=== PATIENT | male | born 1985 | race Caucasian/White ===

== ENCOUNTER 2017-08-06 17:17 | Emergency (ER) | payer MEDICAID ==
[2017-08-06] MEDS ORDERED: Lidocaine 1% 20 ML MDV INJECT ONE (17:18)
[2017-08-06 17:51] VITALS: BP 115/73
--- NOTE | 2017-08-06 18:05 | EDM.PDOC ---
ED HPI GENERAL MEDICAL PROBLEM - General Chief Complaint: Laceration Stated Complaint: FINGER LAC Time Seen by Provider: 08/06/17 17:45 Source of Information: Reports: Patient History Limitations: Reports: No Limitations - History of Present Illness INITIAL COMMENTS - FREE TEXT/NARRATIVE: 32 yo male here with a L thumb laceration that occurred at his home. Tetanus is UTD. Onset: Today Onset Date: 08/06/17 Onset Time: 17:00 Duration: Minutes:, Constant Location: Reports: Upper Extremity, Left Quality: Reports: Burning Severity: Mild Improves with: Reports: None Worsens with: Reports: None Context: Reports: Trauma (slipped utility knife) Associated Symptoms: Reports: No Other Symptoms Treatments MAINTENANCE JOB TITLES: Reports: Other (see below) (none) - Related Data Allergies Allergy/AdvReac Type Severity Reaction Status Date / Time Penicillins Allergy Rash Verified 08/06/17 17:48 Home Meds: Home Meds . [Unable to Verify Home Med List] 08/06/17 [History] Past Medical History Cardiovascular History: Reports: Hypertension Other Musculoskeletal History: Fx L forearm. Fracture right hand-surgury on hand 02/[address] [place] [address] Emilio Strong Psychiatric History: Reports: ADHD Social & Family History - Family History Family Medical History: Noncontributory - Tobacco Use Smoking Status *Q: Current Every Day Smoker Years of Tobacco use: 10 Packs/Tins Daily: 1 Used Tobacco, but Quit: No Second Hand Smoke Exposure: Yes - Caffeine Use Caffeine Use: Reports: Soda - Alcohol Use Days Per Week of Alcohol Use: 1 Number of Drinks Per Day: 4 Total Drinks Per Week: 4 - Recreational Drug Use Recreational Drug Use: No ED ROS GENERAL - Review of Systems Review Of Systems: See Below Constitutional: Reports: No Symptoms Skin: Reports: Wound (L thumb) Neurological: Reports: No Symptoms ED EXAM, SKIN/RASH Exam: See Below Exam Limited By: No Limitations General Appearance: Alert, WD/WN, No Apparent Distress Neurological: Alert, Oriented, CN II-XII Intact, Normal Cognition, No Motor/ Sensory Deficits Psychiatric: Normal Affect, Normal Mood Skin: Warm, Dry, Normal Color, No Rash, Wound/Incision Location, Skin: Upper Extremity, Left Characteristics: Linear Associated features: Tenderness Lymphatic: No Adenopathy ED SKIN PROCEDURES - Laceration/Wound Repair Left Lateral Finger Lac/Wound length In cm: 2.2 Appearance: Subcutaneous, Clean Distal NVT: Neuro & Vascular Intact, No Tendon Injury Anesthetic Type: Local Local Anesthesia - Lidocaine (Xylocaine): 1% Plain Local Anesthetic Volume: 2cc Closed with: Sutures Suture Size: other (5-0) # of Sutures: 4 Drain Placement: Yes Sterile Dressing Applied: Nurse Tetanus Status Addressed: Yes Complications: No Course - Vital Signs Last Recorded V/S: Last Vital Signs Temp 36.7 C 08/06/17 17:50 Pulse 93 08/06/17 17:50 Resp 20 08/06/17 17:50 BP 115/73 08/06/17 17:50 Pulse Ox 93 L 08/06/17 17:50 Departure - Departure Time of Disposition: 18:10 Disposition: Home, Self-Care 01 Condition: Good Clinical Impression: Thumb laceration Qualifiers: Encounter type: initial encounter Damage to nail status: without damage Foreign body presence: without foreign body Laterality: left Qualified Code(s): S61.012A - Laceration without foreign body of left thumb without damage to nail , initial encounter - Discharge Information Referrals: PCP,Unknown [Primary Care Provider] - Forms: ED Department Discharge Care Plan Goals: Clean wound twice daily with soap and water. Dry. Apply antibiotic ointment and a new dressing. Recheck for signs if infection. Take acetaminophen as needed for pain relief. Elevate tonight. Keep wound clean for 3 days. Call your clinic and make an appt for stitch removal for about 10 days from now.
== END 2017-08-06 18:14 | disposition home or self-care (01) ==
LOC: FB.ED 17:17
DX: S61.012A Laceration without foreign body of left thumb without damage to nail, initial encounter (principal); I10 Essential (primary) hypertension; F17.210 Nicotine dependence, cigarettes, uncomplicated; Z88.0 Allergy status to penicillin; W26.0XXA Contact with knife, initial encounter
CPT/HCPCS: 12001; 99283; A4217; 12002

== ENCOUNTER 2017-09-02 12:48 | Emergency (ER) | payer SELFPAY ==
--- NOTE | 2017-09-02 13:21 | EDM.PDOC ---
ED HPI GENERAL MEDICAL PROBLEM - General Chief Complaint: ENT Problem Stated Complaint: TOOTH ACHE Time Seen by Provider: 09/02/17 13:05 Source of Information: Reports: Patient History Limitations: Reports: No Limitations - History of Present Illness INITIAL COMMENTS - FREE TEXT/NARRATIVE: 32 yo male recently broke off 2 molars, one on each side. Now has trouble chewing. Drinks a lot of soda pop and smokes cigarettes. No one available at the clinic for him to see today. Has a dentist appt for this coming Friday. Onset Date: 09/01/17 Duration: Day(s): Location: Reports: Face (mouth) Quality: Reports: Ache Severity: Moderate Improves with: Reports: Other (not eating) Worsens with: Reports: Eating Context: Reports: Other (broken teeth) Associated Symptoms: Reports: No Other Symptoms Treatments TERMITE TREATER: Reports: Other (see below) (Ambesol) left and right pre-molars Pain Score (Numeric/FACES): 7 - Related Data Allergies Allergy/AdvReac Type Severity Reaction Status Date / Time Penicillins Allergy Rash Verified 09/02/17 13:00 Home Meds: Home Meds Clindamycin HCl [Cleocin] 300 mg PO Q8H #21 cap 09/02/17 [Rx] Hydrocodone/Acetaminophen [[place] 5-325] 1 - 2 tab PO Q4H PRN #16 tablet [Rx] Metoclopramide HCl [Reglan] 20 mg PO BID 09/02/17 [History] Penicillin V Potassium 500 mg PO Q8HR #30 tab 09/02/17 [Rx] Past Medical History Cardiovascular History: Reports: Hypertension Other Musculoskeletal History: Fx L forearm. Fracture right hand-surgury on hand 02/[address] [place] [address] Emilio Strong Psychiatric History: Reports: ADHD Social & Family History - Family History Family Medical History: Noncontributory - Tobacco Use Smoking Status *Q: Current Every Day Smoker Years of Tobacco use: 10 Packs/Tins Daily: 1 Used Tobacco, but Quit: No Second Hand Smoke Exposure: Yes - Caffeine Use Caffeine Use: Reports: Soda - Alcohol Use Days Per Week of Alcohol Use: 1 Number of Drinks Per Day: 4 Total Drinks Per Week: 4 - Recreational Drug Use Recreational Drug Use: No ED ROS ENT - Review of Systems Review Of Systems: See Below Constitutional: Reports: No Symptoms HEENT: Reports: Dental Pain Respiratory: Reports: No Symptoms Cardiovascular: Reports: No Symptoms Endocrine: Reports: No Symptoms GI/Abdominal: Reports: No Symptoms ED EXAM, ENT - Physical Exam Exam: See Below Exam Limited By: No Limitations General Appearance: Alert, WD/WN, No Apparent Distress Eye Exam: Bilateral Eye: Normal Inspection Ears: Normal External Exam, Normal Canal, Hearing Grossly Normal Nose: Normal Inspection, Normal Mucousa, No Blood Mouth/Throat: Normal Inspection, Normal Lips, Normal Oropharynx, Dental Pain, Dental Tenderness (Tooth decay) Head: Atraumatic, Normocephalic Neck: Normal Inspection Neurological: Alert, Oriented, CN II-XII Intact, Normal Cognition Psychiatric: Normal Affect, Normal Mood Skin: Warm, Dry, Intact, Normal Color, No Rash Lymphatic: No Adenopathy Course - Vital Signs Last Recorded V/S: Last Vital Signs Temp 36.7 C 09/02/17 12:48 Pulse 106 H 09/02/17 12:48 Resp 18 09/02/17 12:48 BP 136/91 H 09/02/17 12:48 Pulse Ox 100 09/02/17 12:48 Departure - Departure Time of Disposition: 13:23 Disposition: Home, Self-Care 01 Condition: Good Clinical Impression: Pain due to dental caries - Discharge Information Prescriptions: Penicillin V Potassium 500 mg PO Q8HR #30 tab Clindamycin HCl [Cleocin] 300 mg PO Q8H #21 cap Hydrocodone/Acetaminophen [[place] 5-325] 1 - 2 tab PO Q4H PRN #16 tablet PRN Reason: Pain Referrals: Shreyas Alaniz PA [Primary Care Provider] - Forms: ED Department Discharge Additional Instructions: Take Clindamycin as directed. Take ibuprofen 400 mg every 6 hrs with food. Add acetaminophen 1000 mg every 6 hrs OR Wheaton for added relief. You may continue or use a product called Ambesol. Avoid soda pop and cigarettes. [place] twice daily with a fluoride toothpaste and floss daily. See your dentist on Friday as scheduled. Soft diet until your teeth are repaired.
[2017-09-02 13:32] VITALS: BP 125/80
== END 2017-09-02 13:30 | disposition home or self-care (01) ==
LOC: FB.ED 12:48
DX: K02.9 Dental caries, unspecified (principal); Z88.0 Allergy status to penicillin; F17.210 Nicotine dependence, cigarettes, uncomplicated
CPT/HCPCS: 99282; 99283

== ENCOUNTER 2017-09-16 13:32 | Emergency (ER) | payer SELFPAY ==
--- NOTE | 2017-09-16 13:42 | EDM.PDOC ---
ED HPI GENERAL MEDICAL PROBLEM - General Stated Complaint: TOOTH PAIN Time Seen by Provider: 09/16/17 13:32 Source of Information: Reports: Patient History Limitations: Reports: No Limitations - History of Present Illness INITIAL COMMENTS - FREE TEXT/NARRATIVE: 32 y.o.w.m. came to the ed due to cont toothache. Pt has a history of sinus tachycardia for which he takes a betablocker. He did not take the meds for a few days. He is running out of his pain meds and Abx. His Dental appointment is this Friday. Pt smokes daily. No trauma, no street drug use. No N/V/D or any other acute medical issue at this time. BP 132/81 Pulse 135 RR 18 temp 36.8 Onset: Unknown/Unsure Onset Date: 09/11/17 Onset Time: 07:00 Duration: Day(s): Location: Reports: Face Quality: Reports: Ache, Dull, Same as Previous Episode Severity: Moderate Improves with: Reports: Rest Worsens with: Reports: Cold Therapy Context: Reports: Other (ron ache) Associated Symptoms: Reports: No Other Symptoms Dental pain Pain Score (Numeric/FACES): 7 - Related Data Allergies Allergy/AdvReac Type Severity Reaction Status Date / Time Penicillins Allergy Rash Verified 09/16/17 13:38 Home Meds: Home Meds Clindamycin HCl [Cleocin] 300 mg PO Q8H #21 cap 09/02/17 [Rx] Acetaminophen/HYDROcodone [Harrison 325-5 MG] 1 tab PO Q4H PRN #8 tab 09/16/17 [Rx] Sulfamethoxazole/Trimethoprim [Bactrim Ds Tablet] 1 each PO BID #20 tablet 09/16 [Rx] Past Medical History Cardiovascular History: Reports: Hypertension Other Musculoskeletal History: Fx L forearm. Fracture right hand-surgury on hand 02/[address] [place] [address] Emilio Strong Psychiatric History: Reports: ADHD Social & Family History - Family History Family Medical History: Noncontributory - Tobacco Use Smoking Status *Q: Current Every Day Smoker Years of Tobacco use: 10 Packs/Tins Daily: 1 Used Tobacco, but Quit: No Second Hand Smoke Exposure: Yes - Caffeine Use Caffeine Use: Reports: Soda - Alcohol Use Days Per Week of Alcohol Use: 1 Number of Drinks Per Day: 4 Total Drinks Per Week: 4 - Recreational Drug Use Recreational Drug Use: No ED ROS ENT - Review of Systems Review Of Systems: See Below Constitutional: Reports: No Symptoms HEENT: Reports: Dental Pain Respiratory: Reports: No Symptoms Cardiovascular: Reports: Other (H/O sinus tachycardia) Endocrine: Reports: No Symptoms GI/Abdominal: Reports: No Symptoms : Reports: No Symptoms Musculoskeletal: Reports: No Symptoms Skin: Reports: No Symptoms Neurological: Reports: No Symptoms Psychiatric: Reports: No Symptoms Hematologic/Lymphatic: Reports: No Symptoms Immunologic: Reports: No Symptoms ED EXAM, ENT - Physical Exam Exam: See Below Exam Limited By: No Limitations General Appearance: Alert, WD/WN, Mild Distress Eye Exam: Bilateral Eye: Normal Inspection Ears: Normal External Exam Nose: Normal Inspection, Normal Mucousa Mouth/Throat: Dental Pain, Dental Tenderness, Other (dental decay) Head: Atraumatic, Normocephalic Neck: Normal Inspection, Supple, Non-Tender, Full Range of Motion Respiratory/Chest: No Respiratory Distress, Lungs Clear, Normal Breath Sounds Cardiovascular: Normal Peripheral Pulses, Regular Rate, Rhythm, No Edema, No Gallop GI/Abdominal: Normal Bowel Sounds, Soft, Non-Tender, No Organomegaly, No Distention, No Abnormal Bruit, No Mass, Pelvis Stable (Male) Exam: Deferred Rectal (Males) Exam: Deferred Back: Normal Inspection, Full Range of Motion Extremities: Normal Inspection, Normal Range of Motion, Non-Tender, No Pedal Edema, Normal Capillary Refill Neurological: Alert, Oriented, CN II-XII Intact, Normal Cognition, Normal Gait, Normal Reflexes Psychiatric: Normal Affect, Normal Mood Skin: Warm, Dry, Intact, Normal Color, No Rash Lymphatic: No Adenopathy Course - Vital Signs Text/Narrative:: 32 y.o.w.m. came to the ed due to cont toothache. Pt has a history of sinus tachycardia for which he takes a betablocker. He did not take the meds for a few days. He is running out of his pain meds and Abx. His Dental appointment is this Friday. Pt smokes daily. No trauma, no street drug use. No N/V/D or any other acute medical issue at this time. BP 132/81 Pulse 135 RR 18 temp 36.8 PE: Dental decay/pain/gingivitis Impression:Dental decay/pain/gingivitis Tx: as prescription: Bactrim DS Vicodin Plan: D/C with instructions Last Recorded V/S: Last Vital Signs Temp 36.8 C 09/16/17 13:35 Pulse 132 H 09/16/17 13:35 Resp 18 09/16/17 13:35 BP 131/87 09/16/17 13:35 Pulse Ox 99 09/16/17 13:35 Departure - Departure Time of Disposition: 13:56 Disposition: Home, Self-Care 01 Condition: Good Clinical Impression: Regular sinus tachycardia, Poor dentition, Toothache - Discharge Information Prescriptions: Acetaminophen/HYDROcodone [Harrison 325-5 MG] 1 tab PO Q4H PRN #8 tab PRN Reason: severe pain only Sulfamethoxazole/Trimethoprim [Bactrim Ds Tablet] 1 each PO BID #20 tablet Instructions: Dental Caries, [id number] Referrals: Shreyas Alaniz PA [Primary Care Provider] - Forms: ED Department Discharge Additional Instructions: please increase water intake, please follow up with your PMD for evaluation of your tachycardia, please take you meds for your elevated blood pressure, take Bactrim DS as recommended, Motrin for moderate pain. Harrison for severe pain only. Please come back immediately if lightheaded, dizzy, Chest pain, fever, cough or any other acute medical issue.
[2017-09-16 15:18] VITALS: BP 133/89
== END 2017-09-16 14:36 | disposition home or self-care (01) ==
LOC: FB.ED 13:32
DX: K02.9 Dental caries, unspecified (principal); K05.10 Chronic gingivitis, plaque induced; R00.0 Tachycardia, unspecified; I10 Essential (primary) hypertension; F17.210 Nicotine dependence, cigarettes, uncomplicated; Z79.899 Other long term (current) drug therapy; Z88.0 Allergy status to penicillin
CPT/HCPCS: 99282; 99283

== ENCOUNTER 2018-05-27 14:44 | Emergency (ER) | payer OTHER ==
[2018-05-27] MEDS: Sodium Chloride 0.9% 1,000 ML ONE ×3 (14:54→17:05)
[2018-05-27 16:54] VITALS: BP 132/90
--- NOTE | 2018-05-27 16:56 | ER ---
DATE SEEN: 05/27/2018 REASON FOR VISIT: Eye injury. HISTORY OF PRESENT ILLNESS: This is a 33-year-old male, who was working at [employer] and accidentally sprayed [place] to both eyes, the worst in the right. He was wearing safety glasses, but still some spray entered the eye. He flushed it right away, but complains of some burning and pain and blurriness, especially on the right eye. PAST MEDICAL HISTORY: History of myopia and wears glasses, but he does not have them today. REVIEW OF SYSTEMS: No headaches. No other injury sustained. SOCIAL HISTORY: He does not smoke or drink. PHYSICAL EXAMINATION: VITAL SIGNS: His blood pressure is normal. He has a pulse of 104 and temp of 97.9. EARS: Negative. EYES: He has visual acuity of 50/50 on both and 50/70 on the right. Eyes, pupils are equal and reactive to light. The conjunctivae are red, inflamed. Extraocular movements are intact. IMPRESSION: Chemical injury to both eyes. TREATMENT: We did lavage using the Nino's lens for 1-hour. We contacted Poison Control. We were unable to obtain a pH testing strip. We will send the patient home on erythromycin eye ointment three times a day with instructions to see optometry tomorrow at [facility]. /[id number] DANNY/PAULY
== END 2018-05-27 16:45 | disposition home or self-care (01) ==
LOC: FB.ED 14:44
DX: S05.92XA Unspecified injury of left eye and orbit, initial encounter (principal); S05.91XA Unspecified injury of right eye and orbit, initial encounter; X58.XXXA Exposure to other specified factors, initial encounter
CPT/HCPCS: 96360; 96361; 99000; 99283; J7030